=== PATIENT | male | born 1975 | race Asian ===

== ENCOUNTER 2019-04-16 05:47 | Emergency (ER) | payer SELFPAY ==
[~2019-04-16] VITALS: Ht 177.8 cm; Wt 90.7 kg
[2019-04-16 05:50] VITALS: BP 127/91
--- NOTE | 2019-04-16 06:35 | NUR ---
Patient discharged to home in stable condition. Rx and Written and verbal after care instructions given. Patient verbalizes understanding of instruction.
== END 2019-04-16 06:35 | disposition home or self-care (01) ==
LOC: ER 05:50
DX: M54.5 Low back pain (principal)